=== PATIENT | female | born 1955 ===

== ENCOUNTER 2017-04-30 06:44 | Emergency (ER) | payer OTHER ==
[2017-04-30] MEDS ORDERED: Iohexol 240 (50 ml) PO ONE (07:26)
--- NOTE | 2017-04-30 07:32 | ED PDOC ---
HPI: Abdomen Time Seen by Provider: 04/30/17 07:15 Chief Complaint (Nursing): Abdominal Pain Chief Complaint (Provider): Abdominal Pain History Per: Patient, Family History/Exam Limitations: no limitations Onset/Duration Of Symptoms: Hrs Current Symptoms Are (Timing): Still Present Severity: Moderate Location Of Pain/Discomfort: Periumbilical Quality Of Discomfort: "Pain" Associated Symptoms: denies: Nausea, Vomiting, Diarrhea, Urinary Symptoms Exacerbating Factors: None Alleviating Factors: None Additional Complaint(s): Patient is a 61 year old female who presents to ED with family with a history of pancreatitis and liver CA, states severe abdominal and back pain began this morning at 1:30. As per family at bedside patient last ate British food last night but was instructed not to eat greasy foods due to the pancreatitis. She reports a history of these episodes and cannot state what the triggers are. Notes liver CA is contained in the liver as per last CT 1 week ago, taking chemo injections once monthly. Patient denies urinary changes, vomiting or diarrhea, last normal BM yesterday. Taking Tramadol at home for pain without relief. Past Medical History Reviewed: Historical Data, Nursing Documentation, Vital Signs Vital Signs: Last Vital Signs Temp 97.5 F L 04/30/17 13:49 Pulse 78 04/30/17 13:49 Resp 20 04/30/17 13:49 BP 128/76 04/30/17 13:49 Pulse Ox 98 04/30/17 13:49 - Medical History PMH: Gastritis, Gall Bladder Disease (gall stones), Malignancy (Enteric cancer with liver mets) Denies: HIV, Chronic Kidney Disease - Surgical History Surgical History: (x3) - Family History Family History: States: Diabetes - Living Arrangements Living Arrangements: With Family - Social History Current smoker - smoking cessation education provided: No Alcohol: None Drugs: Denies - Home Medications Home Medications: Ambulatory Orders Medication Instructions Recorded Esomeprazole Magnesium [Nexium] 40 mg PO DAILY PRN 04/28/16 traMADol [Ultram] 50 mg PO TID PRN 04/28/16 oxyCODONE/Acetaminophen [Percocet 1 ea PO Q8 #10 tab 04/30/17 5/325 mg Tab] - Allergies Allergies/Adverse Reactions: Allergies Allergy/AdvReac Type Severity Reaction Status Date / Time No Known Allergies Allergy Verified 04/28/16 15:56 Review of Systems ROS Statement: Except As Marked, All Systems Reviewed And Found Negative Constitutional: Negative for: Fever, Chills Cardiovascular: Negative for: Chest Pain Respiratory: Negative for: Shortness of Breath Gastrointestinal: Positive for: Abdominal Pain. Negative for: Nausea, Vomiting , Diarrhea Genitourinary Female: Negative for: Dysuria, Hematuria Musculoskeletal: Positive for: Back Pain Skin: Negative for: Rash Neurological: Negative for: Weakness, Numbness Physical Exam - Reviewed Nursing Documentation Reviewed: Yes Vital Signs Reviewed: Yes - Physical Exam Appears: Positive for: Uncomfortable Skin: Positive for: Normal Color, Warm Eye Exam: Positive for: Normal appearance Neck: Positive for: Normal, Painless ROM Cardiovascular/Chest: Positive for: Regular Rate, Rhythm. Negative for: Murmur Respiratory: Positive for: Normal Breath Sounds. Negative for: Respiratory Distress Gastrointestinal/Abdominal: Positive for: Soft, Tenderness (perumbilical tenderness ). Negative for: Distended, Guarding, Rebound Back: Positive for: Normal Inspection. Negative for: Vertebral Tenderness Extremity: Positive for: Normal ROM Neurologic/Psych: Positive for: Alert, Oriented. Negative for: Motor/Sensory Deficits - Laboratory Results Result Diagrams: 04/30/17 08:23 04/30/17 07:40 - ECG O2 Sat by Pulse Oximetry: 98 (RA) Pulse Ox Interpretation: Normal Medical Decision Making Medical Decision Making: Time: 719 Initial impression: Abdominal pain Initial plan: -- CT-abdomen -- CMP -- Lipase -- CBC -- Morphine -- U/A Scribe Attestation: Documented by Dora Pavon acting as a scribe for Jana Laboy MD MD Scribe Attestation: All medical record entries made by the Scribe were at my direction and personally dictated by me. I have reviewed the chart and agree that the record accurately reflects my personal performance of the history, physical exam, medical decision making, and the department course for this patient. I have also personally directed, reviewed, and agree with the discharge instructions and disposition. 9:05AM CBC and CMP reviewed. Alk phos elevated but baseline for patient. Lipase WNL. CT scan unavailable at [place] currently. Patient transferred to [facility] for CT abd/pelvis with po and IV contrast 12:27 FINDINGS: LOWER THORAX: Minimal posterior dependent atelectasis at the lung bases. LIVER: Normal size and contour. Multiple hepatic masses. The number of masses in the liver has increased when compared to the prior examination of 03/18/2016. These masses are low-attenuation. Many of them show some mild peripheral enhancement. The largest mass in the inferior anterior right hepatic lobe is unchanged in size and measures 2.1 cm in diameter. There is mild intra and extrahepatic biliary ductal dilatation. GALLBLADDER AND BILE DUCTS: The patient is status post cholecystectomy. The common bile duct is dilated up to 10 mm diameter. This represents interval change from the prior CT examination which was performed prior to cholecystectomy. The biliary dilatation is most likely related to the interval cholecystectomy. There is no ampullary mass identified. There is no evidence of choledocholithiasis on this examination. PANCREAS: No mass. Prominence of the pancreatic duct with minimal dilatation in the head and proximal body unchanged from prior examination. No evidence of pancreatitis. SPLEEN: Unremarkable. ADRENALS: Unremarkable. No mass. KIDNEYS AND URETERS: 10 mm mid left renal cortical cyst. No renal calculus or hydronephrosis. VASCULATURE: Unremarkable. No aortic aneurysm. BOWEL: No bowel obstruction. Diverticulosis of the transverse, descending and sigmoid colon without evidence of diverticulitis. APPENDIX: Normal appendix. PERITONEUM: Unremarkable. No free fluid. No free air. LYMPH NODES: No lymphadenopathy. There is a retroperitoneal soft tissue mass with irregular borders containing coarse central calcification. The mass is unchanged in size from prior examination although there are now several low-density rounded regions within the mass suggestive of cysts or regions of necrosis. . BLADDER: Unremarkable. REPRODUCTIVE: Unremarkable uterus. BONES: No acute fracture. OTHER FINDINGS: None. IMPRESSION: Increasing number of liver masses compared to prior CT examination of 2015. Status post cholecystectomy. Mild intra and extrahepatic biliary ductal dilatation. Please correlate with laboratory evaluation. Mild prominence of the pancreatic duct unchanged from prior CT examination. Irregular soft tissue mass in the retroperitoneum with central coarse calcification. No change in size from prior CT though there are now several small cystic foci within this mass, of uncertain significance. Additional minor findings as above. 1:08PM Patient is tolerating po. Pain improved. On reevaluation, abdomen is soft NT/ ND. Only on tramadol at home for pain. Spoke to PMD, Dr. Bartlett's partner who will evaluate in office. Will dc with pain medication for cancer. Disposition - Clinical Impression Clinical Impression: Liver cancer - Disposition Disposition: Routine/Home Disposition Time: 13:09 Condition: GOOD Additional Instructions: Follow up with PMD within 2 days. Follow-up with oncologist. Percocet for pain until evaluated by PMD. Return to ED if condition worsens. Prescriptions: oxyCODONE/Acetaminophen [Percocet 5/325 mg Tab] 1 ea PO Q8 #10 tab Instructions: Liver Cancer (GEN)
[2017-04-30 08:00] LABS: ALB/GLOB RATIO 1.5 (1.0-2.1); ALKALINE PHOSPHATASE 190 U/L (38-126); ALT/SGPT 50 U/L (9-52); AST/SGOT 28 U/L (14-36); BILIRUBIN,TOTAL 0.5 mg/dl (0.2-1.3); BLOOD UREA NITROGEN 22 mg/dl (7-17); CALCIUM 9.4 mg/dL (8.4-10.2); CARBON DIOXIDE 28 mmol/L (22-30); CHLORIDE 100 mmol/L (98-107); GFR AFRICAN-AMERICAN > 60; GLUCOSE,RANDOM 160 mg/dL (65-105); LIPASE 25 U/L (23-300); POTASSIUM 4.2 MMOL/L (3.6-5.0); SODIUM 140 mmol/l (132-148)
[2017-04-30 09:02] LABS: BASO % 0.3 % (0.0-2.0); EOS % 0.2 % (0.0-4.0); HEMATOCRIT 41.1 % (34.0-47.0); LYMPH % 16.5 % (20.0-40.0); MEAN CELL VOLUME 85.8 fl (81.0-99.0); MEAN CORPUSCULAR HEMOGLOBIN 28.9 pg (27.0-31.0); MEAN CORPUSCULAR HGB CONC 33.6 g/dL (33.0-37.0); MONO # 0.3 K/uL (0.0-0.8); MONO % 5.4 % (0.0-10.0); NEUT # 4.5 K/uL (1.8-7.0); NEUT % 77.6 % (50.0-75.0); NRBC % 0.1 % (0.0-0.0); RED CELL DISTRIBUTION WIDTH 13.4 % (11.5-14.5); WHITE BLOOD COUNT 5.8 K/uL (4.8-10.8)
[2017-04-30] MEDS ORDERED: Sodium Chloride 0.9% 500 ML IV ONE (09:41)
[2017-04-30 12:21] VITALS: RESP 20
[2017-04-30 12:28] VITALS: O2SAT 98
[2017-04-30 13:50] VITALS: BP 128/76; PULSE 78; TEMP 97.5
== END 2017-04-30 13:50 | disposition home or self-care (01) ==
LOC: H.ER 06:44
DX: C22.0 Liver cell carcinoma (principal); K85.90 Acute pancreatitis without necrosis or infection, unspecified

== ENCOUNTER 2017-09-02 14:54 | Emergency (ER) | payer OTHER ==
[2017-09-02 15:13] VITALS: TEMP 97; O2SAT 98
[2017-09-02] MEDS ORDERED: Sodium Chloride 0.9% 1,000 ML IV STA (15:47)
[2017-09-02] MEDS ORDERED: HYDROmorphone 0.5 mg/0.5 ml ISec ONE ×2 (15:52→19:29)
[2017-09-02 16:15] LABS: ALB/GLOB RATIO 1.3 (1.0-2.1); ALKALINE PHOSPHATASE 323 U/L (38-126); ALT/SGPT 68 U/L (9-52); AST/SGOT 46 U/L (14-36); BILIRUBIN,TOTAL 0.8 mg/dl (0.2-1.3); BLOOD UREA NITROGEN 21 mg/dl (7-17); CALCIUM 9.2 mg/dL (8.4-10.2); CARBON DIOXIDE 25 mmol/L (22-30); CHLORIDE 102 mmol/L (98-107); GFR AFRICAN-AMERICAN > 60; GLUCOSE,RANDOM 120 mg/dL (65-105); POTASSIUM 4.3 MMOL/L (3.6-5.0); SODIUM 139 mmol/l (132-148); TOTAL PROTEIN 7.9 G/DL (6.3-8.2)
[2017-09-02 16:37] LABS: BASO % 0.3 % (0.0-2.0); HEMATOCRIT 41.5 % (34.0-47.0); LYMPH # 1.1 K/uL (1.0-4.3); LYMPH % 10.5 % (20.0-40.0); MEAN CELL VOLUME 84.4 fl (81.0-99.0); MEAN CORPUSCULAR HEMOGLOBIN 27.8 pg (27.0-31.0); MEAN CORPUSCULAR HGB CONC 32.9 g/dL (33.0-37.0); MONO # 0.4 K/uL (0.0-0.8); NEUT # 8.6 K/uL (1.8-7.0); NEUT % 85.2 % (50.0-75.0); NRBC % 0.3 % (0.0-0.0); RED CELL DISTRIBUTION WIDTH 14.9 % (11.5-14.5); WHITE BLOOD COUNT 10.1 K/uL (4.8-10.8)
--- NOTE | 2017-09-02 18:07 | ED PDOC ---
HPI: Abdomen Time Seen by Provider: 09/02/17 15:03 Chief Complaint (Nursing): Abdominal Pain Chief Complaint (Provider): Left sided abdominal pain History Per: Patient History/Exam Limitations: no limitations Onset/Duration Of Symptoms: Days Outside of [place] travel?: No Current Symptoms Are (Timing): Still Present Severity: Severe Pain Scale Rating Of: 10 Location Of Pain/Discomfort: LUQ, LLQ Quality Of Discomfort: Sharp Associated Symptoms: denies: Fever, Chills, Nausea, Vomiting Past Medical History Vital Signs: Last Vital Signs Temp 97.0 F L 09/02/17 15:10 Pulse 76 09/02/17 15:10 Resp 16 09/02/17 15:10 BP 157/93 H 09/02/17 15:10 Pulse Ox 98 09/02/17 18:19 - Medical History PMH: Gastritis, Gall Bladder Disease (gall stones), Malignancy (Enteric cancer with liver mets) Denies: HIV, Chronic Kidney Disease - Surgical History Surgical History: (x3) - Family History Family History: States: Diabetes - Home Medications Home Medications: Ambulatory Orders Medication Instructions Recorded Esomeprazole Magnesium [Nexium] 40 mg PO DAILY PRN 04/28/16 traMADol [Ultram] 50 mg PO TID PRN 04/28/16 oxyCODONE/Acetaminophen [Percocet 1 ea PO Q8 #10 tab 04/30/17 5/325 mg Tab] - Allergies Allergies/Adverse Reactions: Allergies Allergy/AdvReac Type Severity Reaction Status Date / Time No Known Allergies Allergy Verified 09/02/17 15:10 - Laboratory Results Result Diagrams: 09/02/17 15:55 09/02/17 15:55 - ECG O2 Sat by Pulse Oximetry: 98 Medical Decision Making Medical Decision Making: On re-evaluation patient reports improvement of pain however is now nauseous. Endorsed pending lipase and CT scan. Disposition - Clinical Impression Clinical Impression: Abdominal pain - Patient ED Disposition Is Patient to be Admitted: Transfer of Care - Disposition Disposition: Transfer of Care Disposition Time: 19:28 Condition: STABLE Forms: [facility] ([place])
[2017-09-02] MEDS ORDERED: Iohexol 240 (50 ml) PO ONE (18:19)
[2017-09-02] MEDS ORDERED: Iohexol 240 (50 ml) ONE (19:29)
[2017-09-02] MEDS ORDERED: Iohexol 300 100 ML IJ ONE (22:11)
[2017-09-02] MEDS ORDERED: Sodium Chloride 0.9% 50 ML IV ONE (22:11)
[2017-09-02 22:15] VITALS: BP 134/86; PULSE 81; RESP 21
--- NOTE | 2017-09-03 00:05 | ED PDOC ---
- Laboratory Results Result Diagrams: 09/02/17 15:55 09/02/17 15:55 - ECG O2 Sat by Pulse Oximetry: 98 - Progress ED Course And Treament: CAse endorsed to script writer from [facility] pending CT EXAM: CT Abdomen and Pelvis With Intravenous Contrast CLINICAL HISTORY: 62 years old, female; Pain; Abdominal pain; Localized; Upper; Prior surgery; Surgery date: 6+ months; Surgery type: Liver ca. Embolization; Additional info: Left sided pain, HX liver ca TECHNIQUE: Axial computed tomography images of the abdomen and pelvis with intravenous contrast. All CT scans at this facility use one or more dose reduction techniques, viz.: automated exposure control; ma/kV adjustment per patient size (including targeted exams where dose is matched to indication; i.e. head); or iterative reconstruction technique. Coronal and sagittal reformatted images were created and reviewed. CONTRAST: 95 mL of [id number] administered intravenously. COMPARISON: CT - ABD PELVIS PO IV CONTRAST 03/18/2016 2:14:52 AM FINDINGS: Lower thorax: Subsegmental atelectasis at lung bases. ABDOMEN: Liver: Unremarkable. No mass. Gallbladder and bile ducts: Multiple hypodense lesions in liver, predominantly within the right hepatic lobe. Findings consistent with history of neoplasm. Significant progression when compared to provided prior study. Diffuse mild intrahepatic bile duct dilatation. Correlate with LFTs. Cholecystectomy. Pancreas: Unremarkable. No mass. No ductal dilation. Spleen: Unremarkable. No splenomegaly. Adrenals: Unremarkable. No mass. Kidneys and ureters: Right kidney is unremarkable. Tiny left renal cortical cyst. No hydronephrosis. Stomach and bowel: Sigmoid diverticulosis. Appendix: No findings to suggest acute appendicitis. PELVIS: Bladder: Unremarkable. No mass. Reproductive: Unremarkable as visualized. ABDOMEN and PELVIS: Intraperitoneal space: Unremarkable. No free air. No significant fluid collection. Bones/joints: No acute fracture. No dislocation. Soft tissues: Unremarkable. Vasculature: Unremarkable. No abdominal aortic aneurysm. Lymph nodes: Stable calcified soft tissue lesion centrally in the mesentery with a few adjacent enlarged mesenteric lymph nodes. Some stranding of the adjacent mesenteric fat. IMPRESSION: 1. Interval progression of hepatic lesions when compared to prior examination of 03/18/2016. 2. Remainder of findings as above. On re-eval, patient states pain/nausea improved. Tolerating PO. Patient given copy of CT. States she has follow up at [place] in 1 week. Advised to continue current medications. Return to ED for worsening/concerning symptoms. Disposition Counseled Patient/Family Regarding: Studies Performed, Diagnosis - Clinical Impression Clinical Impression: Abdominal pain - POA Present On Arrival: None - Disposition Disposition: Routine/Home Disposition Time: 00:25 Condition: IMPROVED Instructions: Abdominal Pain (ED)
--- NOTE | 2017-09-03 08:18 | CT ---
PROCEDURE: CT Abdomen and Pelvis with contrast HISTORY: Left-sided abdominal pain. Relevant medical history: Liver cancer COMPARISON: 03/18/2016 TECHNIQUE: Contrast dose: 95 cc Omnipaque 300 Radiation dose: Total exam DLP = 439.12 mGy-cm. This CT exam was performed using one or more of the following dose reduction techniques: Automated exposure control, adjustment of the mA and/or kV according to patient size, and/or use of iterative reconstruction technique. FINDINGS: LOWER THORAX: Unremarkable. LIVER: Progressive tumor burden in the liver compared to the prior CT 03/18/2016. GALLBLADDER AND BILE DUCTS: Status post cholecystectomy. No abnormality is seen in the gallbladder fossa. PANCREAS: Atrophic pancreas. SPLEEN: Unremarkable. ADRENALS: Unremarkable. No mass. KIDNEYS AND URETERS: Unremarkable. No hydronephrosis. No solid mass. VASCULATURE: Unremarkable. No aortic aneurysm. BOWEL: Unremarkable. No obstruction. No gross mural thickening. APPENDIX: Normal appendix. PERITONEUM: Unremarkable. No free fluid. No free air. LYMPH NODES: Stable calcified masses/ lymph nodes retroperitoneum inferior to the pancreas. BLADDER: Unremarkable. REPRODUCTIVE: Unremarkable. BONES: No acute fracture. OTHER FINDINGS: None. IMPRESSION: Progressive hepatic tumor. No acute findings related to/accounting for the clinical presentation. Additional benign and/or incidental findings described above. Concordant results (preliminary interpretation) provided by [employer]. Procedure Completed: 22:40. Preliminary ([employer]) Report: Dictated and Authenticated: 23:25. Final Interpretation: 08:15. September 03, 2017.
== END 2017-09-03 00:37 | disposition home or self-care (01) ==
LOC: H.ER 14:54
DX: R10.12 Left upper quadrant pain (principal)
CPT/HCPCS: 74177; 80053; 83690; 85025; 96374; 96375; 96376; 99283; J1170; J2405; J7040; Q9966; Q9967

== ENCOUNTER 2018-03-19 08:25 | Emergency (ER) | payer OTHER ==
[2018-03-19 08:31] VITALS: BMI 26.6
[2018-03-19 08:32] VITALS: BP 125/77; PULSE 70; RESP 20; TEMP 98
[2018-03-19 08:40] VITALS: O2SAT 98
--- NOTE | 2018-03-19 10:13 | RAD ---
PROCEDURE: Right Knee Radiographs. HISTORY: right knee pain COMPARISON: None. FINDINGS: BONES: No acute fracture. JOINTS: Unremarkable. JOINT EFFUSION: None. OTHER FINDINGS: None. IMPRESSION: No demonstrated fracture or dislocation.
--- NOTE | 2018-03-19 10:37 | US ---
PROCEDURE: Right lower extremity venous duplex Doppler. HISTORY: right leg pain COMPARISON: None available. TECHNIQUE: Common femoral, superficial femoral, popliteal, posterior tibial and peroneal veins were evaluated. Flow was assessed with color Doppler, compressibility, assessment of phasic flow and augmentation response. FINDINGS: COMMON FEMORAL VEIN: Unremarkable. SUPERFICIAL FEMORAL VEIN: Unremarkable. POPLITEAL VEIN: Unremarkable. POSTERIOR TIBIAL VEIN: Unremarkable. OTHER FINDINGS: Perennial vein: Unremarkable. IMPRESSION: No evidence of deep venous thrombosis in the right lower extremity.
--- NOTE | 2018-03-19 11:11 | ED PDOC ---
Lower Extremity Pain/Injury Time Seen by Provider: 03/19/18 09:02 Chief Complaint (Nursing): Lower Extremity Problem/Injury Chief Complaint (Provider): Right knee pain History Per: Patient History/Exam Limitations: no limitations Onset/Duration Of Symptoms: Other (1 week) Current Symptoms Are (Timing): Still Present Additional Complaint(s): 62 year old female presents to the ED complaining of right knee pain onset 1 week ago. Reports of difficulty moving or bending leg. States this happens to her every morning and by the end of the day, she does not have difficulty moving her leg. However, the knee pain from yesterday has worsened and it is radiating throughout her whole leg. She took medication for pain yesterday and no medication today. Also states she has liver disease, neuroendocrine tumor and was under treatment. Currently, she is under no treatment. Denies swelling and no old or new injuries, fever, cheat pain, or shortness of breath. PMD: No Family Provider - Knee Currently Unable To: Bend Or Move Past Medical History Reviewed: Historical Data, Nursing Documentation, Vital Signs Vital Signs: Last Vital Signs Temp 98 F 03/19/18 08:31 Pulse 70 03/19/18 08:31 Resp 20 03/19/18 08:31 BP 125/77 03/19/18 08:31 Pulse Ox 98 03/19/18 08:36 - Medical History PMH: Gastritis, Gall Bladder Disease (gall stones), Malignancy (Enteric cancer with liver mets) Denies: HIV, Chronic Kidney Disease Other PMH: neuroendocrine tumor - Surgical History Surgical History: (x3) - Family History Family History: States: Diabetes - Home Medications Home Medications: Ambulatory Orders Medication Instructions Recorded Esomeprazole Magnesium [Nexium] 40 mg PO DAILY PRN 04/28/16 traMADol [Ultram] 50 mg PO TID PRN 04/28/16 oxyCODONE/Acetaminophen [Percocet 1 ea PO Q8 #10 tab 04/30/17 5/325 mg Tab] Diclofenac Sodium [Voltaren] 1 gm TP BID #1 unit 03/19/18 - Allergies Allergies/Adverse Reactions: Allergies Allergy/AdvReac Type Severity Reaction Status Date / Time No Known Allergies Allergy Verified 03/19/18 08:40 Wells Criteria for PE - Wells Criteria for Pulmonary Embolism Clinical Signs and Symptoms of DVT: No P.E is #1 Diagnosis, or Equally Likely: No Heart Rate >100: No Immobilization at least 3 days;Surgery previous 4 weeks: No Previous, objectively diagnosed PE or DVT: No Hemoptysis: No Malignancy w/treatment within 6 months, or palliative: No Total Score: 0 Review of Systems ROS Statement: Except As Marked, All Systems Reviewed And Found Negative Constitutional: Negative for: Fever Cardiovascular: Negative for: Chest Pain Respiratory: Negative for: Shortness of Breath Musculoskeletal: Positive for: Other (right knee pain) Physical Exam - Reviewed Nursing Documentation Reviewed: Yes Vital Signs Reviewed: Yes - Physical Exam Appears: Positive for: Well, Non-toxic, No Acute Distress Head Exam: Positive for: ATRAUMATIC, NORMAL INSPECTION, NORMOCEPHALIC Skin: Positive for: Normal Color, Warm, Dry Eye Exam: Positive for: EOMI, Normal appearance, PERRL Extremity: Positive for: Normal ROM, Calf Tenderness (palpable on right leg). Negative for: Tenderness, Deformity, Swelling, Other (ecchymosis or redness or mass) Neurologic/Psych: Positive for: Alert, electrologist II-XII (intact), Oriented (x3). Negative for: Motor/Sensory Deficits - ECG O2 Sat by Pulse Oximetry: 98 (RA) Pulse Ox Interpretation: Normal - Progress Re-evaluation Time: 11:20 Condition: Re-examined, Improved Medical Decision Making Medical Decision Making: Time: 925 Initial Impression: Knee pain and Leg pain Differential Diagnosis includes but is not limited to: DVT, arthritis, and muscle pain Initial Plan: --Knee 3 Views [RAD] --Duplex Lower Extrm View right [US] --Reevaluation Time: 1011 PROCEDURE: Right Knee Radiographs. FINDINGS: BONES: No acute fracture. JOINTS: Unremarkable. JOINT EFFUSION: None. OTHER FINDINGS: None. IMPRESSION: No demonstrated fracture or dislocation. Time: 1033 PROCEDURE: Right lower extremity venous duplex Doppler. FINDINGS: COMMON FEMORAL VEIN: Unremarkable. SUPERFICIAL FEMORAL VEIN: Unremarkable. POPLITEAL VEIN: Unremarkable. POSTERIOR TIBIAL VEIN: Unremarkable. OTHER FINDINGS: Perennial vein: Unremarkable. IMPRESSION: No evidence of deep venous thrombosis in the right lower extremity. Scribe Attestation: Documented by Faheem Marinelli, acting as a scribe for Johnnie Stevens MD Provider Scribe Attestation: All medical record entries made by the Scribe were at my direction and personally dictated by me. I have reviewed the chart and agree that the record accurately reflects my personal performance of the history, physical exam, medical decision making, and the department course for this patient. I have also personally directed, reviewed, and agree with the discharge instructions and disposition. Disposition - Clinical Impression Clinical Impression: Arthralgia - Patient ED Disposition Is Patient to be Admitted: No Doctor Will See Patient In The: Office Counseled Patient/Family Regarding: Studies Performed, Diagnosis, Need For Followup - Disposition Referrals: [facility] [Outside] Disposition: Routine/Home Disposition Time: 11:20 Condition: GOOD Additional Instructions: Take motrin for pain as needed. Follow up with your PCP in 2-3 days. Prescriptions: Diclofenac Sodium [Voltaren] 1 gm TP BID #1 unit Instructions: Joint Pain
== END 2018-03-19 11:25 | disposition home or self-care (01) ==
LOC: H.ER 08:25
DX: M25.561 Pain in right knee (principal)

== ENCOUNTER 2018-12-11 07:43 | Emergency (ER) | payer OTHER ==
[2018-12-11 07:43] VITALS: BMI 26.6
[2018-12-11] MEDS ORDERED: Sodium Chloride 0.9% 1,000 ML IV STA (08:23)
[2018-12-11] MEDS ORDERED: Morphine 4 MG/ML VIAL IV STA ×3 (08:23→12:00)
[2018-12-11] MEDS ORDERED: Morphine 4 MG/ML VIAL ONE ×3 (08:31→12:09)
--- NOTE | 2018-12-11 08:45 | ED PDOC ---
HPI: Abdomen Time Seen by Provider: 12/11/18 07:53 Chief Complaint (Nursing): Abdominal Pain Chief Complaint (Provider): Abdominal Pain History Per: Patient History/Exam Limitations: no limitations Onset/Duration Of Symptoms: Days (x1) Location Of Pain/Discomfort: RUQ, RLQ Additional Complaint(s): 63 y/o female with history of malignancy and neuroendocrine tumor in the liver presents to ER for evaluation of severe upper abdominal pain and nausea that started last night. Patient reports she was diagnosed with liver cancer in 2012 and received 2 embolization. She states she took oral Dilaudid this morning with no relief and reports she does not take it daily but only intermittently for pain. Patient also reports having pantoprazole for gastritis but states she has not had it for several days. She denies any melena, hematemesis, fever, syncope, weakness, sore throat, diarrhea, back pain, urinary symptoms and headache. PMD: None provided Past Medical History Reviewed: Historical Data, Nursing Documentation, Vital Signs Vital Signs: Last Vital Signs Temp 97.4 F L 12/11/18 07:50 Pulse 71 12/11/18 07:50 Resp 18 12/11/18 07:50 BP 132/76 12/11/18 07:50 Pulse Ox 100 12/11/18 07:50 - Medical History PMH: Gastritis, Gall Bladder Disease (gall stones), Malignancy (Enteric cancer with liver mets) Denies: HIV, Chronic Kidney Disease - Surgical History Surgical History: Cholecystectomy, (x3) - Family History Family History: States: Diabetes - Social History Current smoker - smoking cessation education provided: No Alcohol: None Drugs: Denies - Home Medications Home Medications: Ambulatory Orders Medication Instructions Recorded Esomeprazole Magnesium [Nexium] 40 mg PO DAILY PRN 04/28/16 RX: traMADol [Ultram] 50 mg PO TID PRN 04/28/16 oxyCODONE/Acetaminophen [Percocet 1 ea PO Q8 #10 tab 04/30/17 5/325 mg Tab] Diclofenac Sodium [Voltaren] 1 gm TP BID #1 unit 03/19/18 HYDROmorphone [Dilaudid 2 mg Tab] 2 mg PO TID #12 tab 12/11/18 Ondansetron ODT [Zofran ODT] 4 mg PO Q6 PRN #10 odt 12/11/18 Ranitidine HCl [Zantac] 150 mg PO BID #20 tablet 12/11/18 - Allergies Allergies/Adverse Reactions: Allergies Allergy/AdvReac Type Severity Reaction Status Date / Time No Known Allergies Allergy Verified 03/19/18 08:40 Review of Systems ROS Statement: Except As Marked, All Systems Reviewed And Found Negative Constitutional: Negative for: Fever ENT: Negative for: Throat Pain Gastrointestinal: Positive for: Nausea, Abdominal Pain (upper). Negative for: Diarrhea, Melena, Hematemesis Genitourinary Female: Negative for: Dysuria, Hematuria Musculoskeletal: Negative for: Back Pain Neurological: Negative for: Weakness, Headache Physical Exam - Reviewed Nursing Documentation Reviewed: Yes Vital Signs Reviewed: Yes - Physical Exam Appears: Positive for: Uncomfortable, In Acute Distress (painful) Head Exam: Positive for: ATRAUMATIC, NORMOCEPHALIC Skin: Positive for: Normal Color, Warm, Dry Neck: Positive for: Normal, Painless ROM, Supple Cardiovascular/Chest: Positive for: Regular Rate, Rhythm. Negative for: Murmur Respiratory: Positive for: Normal Breath Sounds. Negative for: Wheezing Gastrointestinal/Abdominal: Positive for: Tenderness (Upper), Guarding Back: Positive for: Normal Inspection. Negative for: L CVA Tenderness, R CVA Tenderness Extremity: Positive for: Normal ROM. Negative for: Pedal Edema, Deformity Neurologic/Psych: Positive for: Alert, Oriented (x3) - Laboratory Results Result Diagrams: 12/11/18 08:22 12/11/18 08:22 - ECG O2 Sat by Pulse Oximetry: 100 (RA) Pulse Ox Interpretation: Normal Medical Decision Making Medical Decision Makin --Rule out acute abdomen or complications of malignancy --Initiate pain medication and fluids 1222 Abdomen/ Pelvis CT FINDINGS: LOWER THORAX: Bibasilar dependent atelectasis. LIVER: Heterogeneous enhancement with diffuse tumor burden. No ductal dilatation. GALLBLADDER AND BILE DUCTS: Prior cholecystectomy with surgical clips in place. Prominent CBD. PANCREAS: Atrophic. Prominent pancreatic duct. SPLEEN: Unremarkable. ADRENALS: Unremarkable. No mass. KIDNEYS AND URETERS: Unremarkable. No hydronephrosis. No solid mass. VASCULATURE: Unremarkable. No aortic aneurysm. No aortic atherosclerotic calcification or mural plaque present. BOWEL: Unremarkable. No obstruction. No gross mural thickening. APPENDIX: Normal appendix. PERITONEUM: Unremarkable. No free fluid. No free air. LYMPH NODES: Increased prominence of mesenteric lymph nodes. Stable calcified masses/lymph nodes inferior to the pancreas. BLADDER: Unremarkable. REPRODUCTIVE: Unremarkable. BONES: No acute fracture. OTHER FINDINGS: None. IMPRESSION: No acute abdominal pelvic pathology. Diffuse tumor burden within the liver again seen. Mildly increased prominence of upper mesenteric/retroperitoneal lymph nodes. Additional stable findings as above. --------- given dilaudid IV with improvement of pain. Attempted to obtain pain management consult in ED but unavailable. Rx dilaudid 2mg and referred to outpatient pain management. Instructions and indications for return were discussed at length. Pt to followup [facility] for further cancer care. Scribe Attestation: Documented by Afia Bravo, acting as a scribe for Kalpesh Tsang MD. Provider Scribe Attestation: All medical record entries made by the Scribe were at my direction and personally dictated by me. I have reviewed the chart and agree that the record accurately reflects my personal performance of the history, physical exam, medical decision making, and the department course for this patient. I have also personally directed, reviewed, and agree with the discharge instructions and disposition. Disposition - Clinical Impression Clinical Impression: Abdominal pain, Malignancy - Patient ED Disposition Is Patient to be Admitted: No Counseled Patient/Family Regarding: Studies Performed, Diagnosis - Disposition Referrals: Jose Angel Billings MD [Medical Doctor] - Disposition: Routine/Home Disposition Time: 13:00 Condition: STABLE Additional Instructions: See your doctor for further testing and pain management. Prescriptions: HYDROmorphone [Dilaudid 2 mg Tab] 2 mg PO TID #12 tab Ondansetron ODT [Zofran ODT] 4 mg PO Q6 PRN #10 odt PRN Reason: Nausea/Vomiting Ranitidine HCl [Zantac] 150 mg PO BID #20 tablet Instructions: Acute Abdomen (Belly Pain), Managing Pain When You Have Cancer, N ausea and Vomiting With Cancer Treatment Forms: [employer] (Paraguayan)
[2018-12-11] MEDS ORDERED: Iohexol 240 (50 ml) PO ONE (09:20)
[2018-12-11 09:50] LABS: BASO % 0.1 % (0.0-2.0); HEMOGLOBIN 13.2 g/dL (12.0-16.0); LYMPH # 0.6 K/uL (1.0-4.3); LYMPH % 7.8 % (20.0-40.0); MEAN CELL VOLUME 86.9 fl (81.0-99.0); MEAN CORPUSCULAR HEMOGLOBIN 27.8 pg (27.0-31.0); MEAN PLATELET VOLUME 8.7 fl (7.2-11.7); MONO # 0.2 K/uL (0.0-0.8); MONO % 2.3 % (0.0-10.0); NEUT # 6.5 K/uL (1.8-7.0); NEUT % 89.8 % (50.0-75.0); NRBC % 0.1 % (0.0-0.0); PLATELET COUNT 275 K/uL (130-400); RBC 4.76 Mil/uL (3.80-5.20); WHITE BLOOD COUNT 7.3 K/uL (4.8-10.8)
[2018-12-11] MEDS ORDERED: Alum-Mag Hydrox-Simethicone Susp (30 mL) PO ONE (09:54)
[2018-12-11] MEDS ORDERED: Alum-Mag Hydrox-Simethicone Susp (30 mL) ONE (09:58)
[2018-12-11 10:02] LABS: ALB/GLOB RATIO 1.2 (1.0-2.1); ALBUMIN 3.9 g/dL (3.5-5.0); ALT/SGPT 41 U/L (9-52); AST/SGOT 30 U/L (14-36); BLOOD UREA NITROGEN 22 mg/dl (7-17); CALCIUM 9.8 mg/dL (8.4-10.2); GFR NON-AFRICAN AMERICAN > 60; LIPASE 29 U/L (23-300); SQUAMOUS EPITHIAL 4 /hpf (0-5); URINE BACTERIA RARE (<OCC); URINE BILIRUBIN NEGATIVE (NEGATIVE); URINE BLOOD SMALL (NEGATIVE); URINE CLARITY CLOUDY (Clear); URINE COLOR YELLOW (YELLOW); URINE GLUCOSE (UA) NEG (NEGATIVE); URINE LEUKOCYTE ESTERASE NEG Leu/uL (Negative); URINE PROTEIN 30 mg/dL (NEGATIVE); URINE UROBILINOGEN 0.2-1.0 mg/dL (0.2-1.0)
[2018-12-11] MEDS ORDERED: Iohexol 300 100 ML IJ ONE (11:39)
[2018-12-11] MEDS ORDERED: Sodium Chloride 0.9% 100 ML ONE (11:39)
--- NOTE | 2018-12-11 12:25 | CT ---
Date of service: 12/11/2018 PROCEDURE: CT Abdomen and Pelvis with contrast HISTORY: abdominal pain COMPARISON: CT scan of the abdomen pelvis dated 09/02/2017 TECHNIQUE: Contrast dose: 98 mL Omnipaque 300 Radiation dose: Total exam DLP = 342.95 mGy-cm. This CT exam was performed using one or more of the following dose reduction techniques: Automated exposure control, adjustment of the mA and/or kV according to patient size, and/or use of iterative reconstruction technique. FINDINGS: LOWER THORAX: Bibasilar dependent atelectasis. LIVER: Heterogeneous enhancement with diffuse tumor burden. No ductal dilatation. GALLBLADDER AND BILE DUCTS: Prior cholecystectomy with surgical clips in place. Prominent CBD. PANCREAS: Atrophic. Prominent pancreatic duct. SPLEEN: Unremarkable. ADRENALS: Unremarkable. No mass. KIDNEYS AND URETERS: Unremarkable. No hydronephrosis. No solid mass. VASCULATURE: Unremarkable. No aortic aneurysm. No aortic atherosclerotic calcification or mural plaque present. BOWEL: Unremarkable. No obstruction. No gross mural thickening. APPENDIX: Normal appendix. PERITONEUM: Unremarkable. No free fluid. No free air. LYMPH NODES: Increased prominence of mesenteric lymph nodes. Stable calcified masses/lymph nodes inferior to the pancreas. BLADDER: Unremarkable. REPRODUCTIVE: Unremarkable. BONES: No acute fracture. OTHER FINDINGS: None. IMPRESSION: No acute abdominal pelvic pathology. Diffuse tumor burden within the liver again seen. Mildly increased prominence of upper mesenteric/retroperitoneal lymph nodes. Additional stable findings as above.
[2018-12-11 13:06] LABS: BASOPHIL 1 % (0-2); LYMPHOCYTE 10 % (20-50); MONOCYTE 3 % (0-10); NEUTROPHIL 84 % (42-75); PLATELET ESTIMATE NORMAL (NORMAL); REACTIVE LYMPHOCYTES 2 % (0-0); TOTAL CELLS COUNTED 100
[2018-12-11 16:11] VITALS: BP 127/74; PULSE 67; RESP 17; TEMP 97.9
--- NOTE | 2018-12-12 16:52 | CARD ---
APPROVED REPORT Date of service: 12/11/2018 EKG Measurement Heart [id number] <Conclusion> Sinus bradycardia with sinus arrhythmia Otherwise normal ECG
[2018-12-15 11:59] VITALS: O2SAT 100
== END 2018-12-11 16:06 | disposition home or self-care (01) ==
LOC: H.ER 07:43
DX: R10.11 Right upper quadrant pain (principal); C80.1 Malignant (primary) neoplasm, unspecified
CPT/HCPCS: 74177; 80053; 81003; 83690; 85025; 93005; 96374; 99285; J1170; J2270; J2405; J7030; Q9966; Q9967

== ENCOUNTER 2018-12-17 20:14 | Emergency (ER) | payer OTHER ==
[2018-12-17 20:14] VITALS: BMI 26.6
[2018-12-17] MEDS ORDERED: Sodium Chloride 0.9% 1,000 ML IV STA (21:05)
--- NOTE | 2018-12-17 21:07 | ED PDOC ---
HPI: Abdomen Time Seen by Provider: 12/17/18 20:34 Chief Complaint (Nursing): Abdominal Pain Chief Complaint (Provider): Abdominal Pain History Per: Patient History/Exam Limitations: no limitations Onset/Duration Of Symptoms: Days (x1) Outside of [place] travel?: No Current Symptoms Are (Timing): Still Present Location Of Pain/Discomfort: Diffuse Associated Symptoms: Nausea. denies: Fever Additional Complaint(s): 63 y/o female with a PMHx of malignancy and neuroendocrine tumor in the liver presents to the ED for evaluation of constant diffuse abdominal pain associated with back pain, nausea, decreased PO intake and no bowel movements, onset last night. Patient reports her last bowel movement was two days ago. Patient additionally reports of being seen and evaluated here last week for the same symptoms, had a CT performed with no changes to previous scans and thus discharged home. Patient reports she last ate and drank yesterday before symptoms began. Patient states she used to get these pains often. Of note, patient reports of not being started on chemotherapy or radiation. Otherwise, patient denies vomiting, diarrhea, eating or drinking anything today and fever. Of note, patient reports of taking 2.5 mg of Dialudid three times today as well as zofran for symptom relief. PMD: Jeffery Clarke Oncologist: Dr. Whaley Pain Management: no provider Past Medical History Reviewed: Historical Data, Nursing Documentation, Vital Signs Vital Signs: Last Vital Signs Temp 97.8 F 12/17/18 20:27 Pulse 80 12/17/18 20:27 Resp 18 12/17/18 20:27 BP 146/89 12/17/18 20:27 Pulse Ox 97 12/17/18 20:27 - Medical History PMH: Gastritis, Gall Bladder Disease (gall stones), Malignancy (Enteric cancer with liver mets) Denies: HIV, Chronic Kidney Disease Other PMH: neuroendocrine tumor in the liver - Surgical History Surgical History: Cholecystectomy, (x3) Other surgeries: 2 embolizations - Family History Family History: States: Diabetes - Home Medications Home Medications: Ambulatory Orders Medication Instructions Recorded Esomeprazole Magnesium [Nexium] 40 mg PO DAILY PRN 04/28/16 traMADol [Ultram] 50 mg PO TID PRN 04/28/16 oxyCODONE/Acetaminophen [Percocet 1 ea PO Q8 #10 tab 04/30/17 5/325 mg Tab] Diclofenac Sodium [Voltaren] 1 gm TP BID #1 unit 03/19/18 HYDROmorphone [Dilaudid 2 mg Tab] 2 mg PO TID #12 tab 12/11/18 Ondansetron ODT [Zofran ODT] 4 mg PO Q6 PRN #10 odt 12/11/18 Ranitidine HCl [Zantac] 150 mg PO BID #20 tablet 12/11/18 - Allergies Allergies/Adverse Reactions: Allergies Allergy/AdvReac Type Severity Reaction Status Date / Time No Known Allergies Allergy Verified 12/17/18 20:26 Review of Systems ROS Statement: Except As Marked, All Systems Reviewed And Found Negative Constitutional: Negative for: Fever Gastrointestinal: Positive for: Nausea, Abdominal Pain, Other (decreased PO intake). Negative for: Vomiting, Diarrhea Genitourinary Female: Positive for: Other (No BMs in the last two days) Physical Exam - Reviewed Nursing Documentation Reviewed: Yes Vital Signs Reviewed: Yes - Physical Exam Appears: Positive for: Uncomfortable, In Acute Distress Head Exam: Positive for: ATRAUMATIC, NORMOCEPHALIC Skin: Positive for: Normal Color, Warm, Dry Eye Exam: Positive for: Normal appearance, EOMI, PERRL ENT: Positive for: Normal ENT Inspection, Pharynx Is (clear) Neck: Positive for: Normal, Painless ROM, Supple Cardiovascular/Chest: Positive for: Regular Rate, Rhythm. Negative for: Murmur Respiratory: Positive for: Normal Breath Sounds. Negative for: Respiratory Distress Gastrointestinal/Abdominal: Positive for: Tenderness (mild diffuse tenderness). Negative for: Distended Back: Positive for: Normal Inspection Extremity: Positive for: Normal ROM. Negative for: Deformity Neurologic/Psych: Positive for: Alert, Oriented. Negative for: Motor/Sensory Deficits - Laboratory Results Result Diagrams: 12/17/18 21:30 12/17/18 21:30 - ECG O2 Sat by Pulse Oximetry: 97 (RA) Pulse Ox Interpretation: Normal - Progress Re-evaluation Time: 01:04 Condition: Re-examined, Improved Medical Decision Making Medical Decision Making: Time: 2116 Impression: Exacerbation of chronic abdominal pain Differentials include but not limited to cancer related abdominal pain, small bowel obstruction, gastritis and pancreatitis. Plan: -- CT Abd/Pelvis IV Contrast -- CMP -- Lipase -- ED Urine Dipstick -- CBC with Differentials -- Morphine 8 mg IVP -- Sodium Chloride IV 1000 mls/hr -- Zofran Inj 4 mg IV Scribe Attestation: Documented by Renaldo Galarza, acting as a scribe for Johnnie Stevens MD. Provider Scribe Attestation: All medical record entries made by the Scribe were at my direction and perso gerson dictated by me. I have reviewed the chart and agree that the record accurately reflects my personal performance of the history, physical exam, medical decision making, and the department course for this patient. I have also personally directed, reviewed, and agree with the discharge instructions and disposition. Disposition - Clinical Impression Clinical Impression: Abdominal pain, Neuro-endocrine cancer - Patient ED Disposition Is Patient to be Admitted: No Doctor Will See Patient In The: Office Counseled Patient/Family Regarding: Studies Performed, Diagnosis, Need For Followup - Disposition Disposition: Routine/Home Disposition Time: 01:04 Condition: GOOD Additional Instructions: JANNETTE AKERS, thank you for letting us take care of you today. Your provider was Johnnie Stevens MD and you were treated for STOMACH PAINS. The emergency medical care you received today was directed at your acute symptoms. If you were prescribed any medication, please fill it and take as directed. It may take several days for your symptoms to resolve. Return to the Emergency Department if your symptoms worsen, do not improve, or if you have any other problems. Please contact your doctor or call one of the physicians/clinics you have been referred to that are listed on the Patient Visit Information form that is included in your discharge packet. Bring any paperwork you were given at discharge with you along with any medications you are taking to your follow up visit. Our treatment cannot replace ongoing medical care by a primary care provider outside of the emergency department. Thank you for allowing the [facility] team to be part of your care today. If you had an X-Ray or CT scan: A Radiologist will review the ED reading if any change in treatment is needed we will contact you. If you had a blood, urine, or wound culture: It will take several days for the results, if any change in treatment is needed we will contact you. If you had an STI test: It will take 48 hours for the results. Please call after 1 week if you have not heard back. Instructions: Chronic Pain (DC)
[2018-12-17] MEDS ORDERED: Morphine 4 MG/ML VIAL ONE ×2 (21:14→23:39)
[2018-12-17] MEDS ORDERED: Iohexol 300 100 ML IJ ONE (21:24)
[2018-12-17] MEDS ORDERED: Sodium Chloride 0.9% 0 ML IV ONE (21:25)
[2018-12-17 21:34] LABS: BASO % 0.3 % (0.0-2.0); EOS % 0.1 % (0.0-4.0); HEMOGLOBIN 14.2 g/dL (12.0-16.0); LYMPH # 0.9 K/uL (1.0-4.3); LYMPH % 10.6 % (20.0-40.0); MEAN CELL VOLUME 83.4 fl (81.0-99.0); MEAN CORPUSCULAR HEMOGLOBIN 27.8 pg (27.0-31.0); MEAN CORPUSCULAR HGB CONC 33.3 g/dL (33.0-37.0); MEAN PLATELET VOLUME 8.3 fl (7.2-11.7); MONO # 0.4 K/uL (0.0-0.8); RBC 5.11 Mil/uL (3.80-5.20); RED CELL DISTRIBUTION WIDTH 13.9 % (11.5-14.5); WHITE BLOOD COUNT 8.4 K/uL (4.8-10.8)
[2018-12-17 21:52] VITALS: RESP 15
[2018-12-17 21:52] LABS: ALB/GLOB RATIO 1.2 (1.0-2.1); ALT/SGPT 47 U/L (9-52); AST/SGOT 35 U/L (14-36); BLOOD UREA NITROGEN 25 mg/dl (7-17); CALCIUM 9.6 mg/dL (8.4-10.2); GFR NON-AFRICAN AMERICAN > 60; LIPASE 243 U/L (23-300)
[2018-12-17] MEDS ORDERED: Morphine 4 MG/ML VIAL IVP ONE (23:39)
[2018-12-18 01:15] VITALS: BP 131/87; PULSE 75; TEMP 98.1; O2SAT 99
== END 2018-12-18 01:14 | disposition home or self-care (01) ==
LOC: H.ER 20:14
DX: R10.9 Unspecified abdominal pain (principal); K56.609 Unspecified intestinal obstruction, unspecified as to partial versus complete obstruction; G89.29 Other chronic pain
CPT/HCPCS: 80053; 83690; 85025; 96374; 96375; 96376; 99284; J2270; J2405; J7030